=== PATIENT | female | born 1985 | race African-American/Black ===

== ENCOUNTER 2016-08-20 21:37 | Emergency (ER) | payer MEDICAID ==
[~2016-08-20] VITALS: Ht 175.3 cm; Wt 136.1 kg
[2016-08-20 22:09] VITALS: BP 119/73
[2016-08-20] MEDS ORDERED: AUGMENTIN 875-1 EAC1 ORAL (22:09)
[2016-08-20] MEDS ORDERED: NEXAFED30 MG ORAL (22:09)
--- NOTE | 2016-08-20 22:09 | Emergency Room Report ---
History of Present Illness General Chief Complaint: Pain Source: Patient Present Illness HPI Is a 31-year-old female with no past medical history. She presents with sinus pressure and pain for the last 2 weeks. Does have runny nose congestion. Sneezing more. Has yellow mucous. No fever or chills. 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 No other complaint. Mcak-eiu-heiclem medication not helping. Allergies: Coded Allergies: No Known Allergies (Unverified , 08/20/16) Patient History Past Medical History: none, see triage record, old chart reviewed Past Surgical History: none Pertinent Family History: none Social History: Denies: smoking Last Menstrual Period: 08/13/16 Now: No Immunizations: other Reviewed Nursing Documentation: PMH: Agreed, PSxH: Agreed Nursing Documentation-PM Past Medical History: No Stated History Review of Systems Eye: Denies: blurred vision, eye pain ENT: Reports: nose congestion, nose pain, Denies: ear pain, throat swelling Respiratory: Denies: cough, shortness of breath Cardiovascular: Denies: chest pain, palpitations Gastrointestinal: Denies: abdominal pain, diarrhea, nausea, vomiting Musculoskeletal: Denies: back pain, joint pain Skin: Denies: rash Neurological: Denies: headache, numbness Endocrine: Denies: increased thirst, increased urine Hematologic/Lymphatic: Denies: easy bruising All Other Systems: negative except mentioned in HPI Physical Exam Vital Signs Date Time Temp Pulse Resp B/P Pulse Ox O2 Delivery O2 Flow Rate FiO2 08/20/16 21:50 97.0 68 17 126/77 100 Room Air vitals normal Sp02 EP Interpretation: reviewed, normal General Appearance: well appearing, no apparent distress, alert Head: normocephalic, atraumatic Eyes: bilateral eye EOMI, bilateral eye PERRL ENT: hearing grossly normal, normal pharynx, other - sinus tenderness with palpation Neck: full range of motion, supple, no meningismus Respiratory: chest non-tender, lungs clear, normal breath sounds Cardiovascular #1: regular rate, rhythm, no murmur Gastrointestinal: normal bowel sounds, non tender, no mass, no organomegaly, no bruit, non-distended Musculoskeletal: back normal, gait/station normal, normal range of motion Psychiatric: mood/affect normal Skin: warm/dry Medical Decision Making Diagnostic Impression: Primary Impression: Sinusitis, acute maxillary Qualified Codes: J01.00 - Acute maxillary sinusitis, unspecified Additional Impression: Viral upper respiratory illness ER Course She present with a viral illness now with acute sinusitis. Because been ongoing for over 2 weeks, I will go ahead and put her on antibiotics. No evidence of sepsis, meningitis or fungal infection. She looks well. We'll discharge home. Last Vital Signs Date Time Temp Pulse Resp B/P Pulse Ox O2 Delivery O2 Flow Rate FiO2 08/20/16 21:50 97.0 68 17 126/77 100 Room Air Status: improved Disposition: HOME, SELF-CARE Condition: Stable Scripts Pseudoephedrine Hcl* (NEXAFED*) 30 Mg Tablet 30 MG ORAL Q6H Y for congestion, #30 TAB Prov: ANDREW ROY M.D. 08/20/16 Amoxicillin/Potassium Clav 875-125* (AUGMENTIN 875-125 TABLET*) 1 Each Tablet 1 TAB ORAL TWICE A DAY, #20 TAB Prov: ANDREW ROY M.D. 08/20/16 Additional Instructions: Followup with your in 7 days. Return for increasing pain, fever, chills, or any concern. ANDREW ROY M.D. Aug 20, 2016 22:09
[2016-08-20 22:14] VITALS: BP 119/73
== END 2016-08-20 23:00 | disposition home or self-care (01) ==
LOC: EMR 22:50
DX: J01.00 Acute maxillary sinusitis, unspecified (principal); J06.9 Acute upper respiratory infection, unspecified; B34.9 Viral infection, unspecified
CPT/HCPCS: 99284

== ENCOUNTER 2016-12-20 10:49 | Emergency (ER) | payer MEDICAID ==
[~2016-12-20] VITALS: Ht 175.3 cm; Wt 140.6 kg
[~2016-12-20 10:49] MED LIST: AUGMENTIN 875-1 EAC1 ORAL; NEXAFED30 MG ORAL
[2016-12-20 11:06] VITALS: BP 109/65
[2016-12-20] MEDS ORDERED: IBUPROFEN600 MG ORAL (11:45)
[2016-12-20] MEDS ORDERED: PSEUDOEPHEDRINE60 MG PO (11:45)
[2016-12-20] MEDS ORDERED: AMOXICILLIN500 M1 PO (11:45)
[2016-12-20 11:55] VITALS: BP 128/67
--- NOTE | 2016-12-20 11:55 | Emergency Room Report ---
History of Present Illness General Chief Complaint: Headache Source: Patient Present Illness HPI Patient reports nosebleed with mucus and congestion the last 3 days, nosebleed times one today stopped on its on. Sinus congestion, sinus headache and discomfort reported. She's been using jxcb-[id number]-[id number] medications. Nonsmoker. No history of sinus surgery or allergies. Not . Pain is rated moderate but not severe. There is no brain ears, visual complaints, pain in the teeth or dental problems reported. No otitis symptoms noted Allergies: Coded Allergies: No Known Allergies (Unverified , 08/20/16) Patient History Past Medical History: see triage record Social History: Denies: alcohol use, drug use, smoking Last Menstrual Period: 12/14/2016 and still bleeding Now: No : 0 Para: 0 Reviewed Nursing Documentation: PMH: Agreed Nursing Documentation-PMH Past Medical History: No Stated History Review of Systems ENT: Reports: nasal discharge, nose congestion, nose pain All Other Systems: negative except mentioned in HPI Physical Exam Vital Signs Date Time Temp Pulse Resp B/P Pulse Ox O2 Delivery O2 Flow Rate FiO2 12/20/16 10:55 98.2 69 18 109/65 98 Room Air Sp02 EP Interpretation: reviewed, normal General Appearance: no apparent distress, alert, GCS 15 Head: atraumatic Eyes: bilateral eye normal inspection ENT: normal voice, dry mucus membranes, nasal congestion, other - mild dried blood in the left nare, tenderness percussion in the left and right maxillary and frontal sinus, no redness or swelling Neck: normal inspection, full range of motion, supple, no bony tend Respiratory: normal inspection, lungs clear, normal breath sounds, no respiratory distress, no retraction, no wheezing Cardiovascular #1: regular rate, rhythm, no edema Gastrointestinal: normal inspection, normal bowel sounds, non tender, soft, no guarding, no hernia Genitourinary: no CVA tenderness Musculoskeletal: normal inspection, back normal, normal range of motion Neurologic: normal inspection, alert, responsive, speech normal Psychiatric: normal inspection, judgement/insight normal, mood/affect normal Skin: normal inspection, normal color, no rash Medical Decision Making Diagnostic Impression: Primary Impression: Headache Additional Impression: sinusitis ER Course Ration here with sinus symptoms duration of approximately 3 days. Noted blood on her tissue today with mucus. No allergies and no significant findings for acute bacterial sinusitis. Patient does have access issues with health care and we had a long discussion of awum-ahh-tsdozzm treatments and the patient will prefer to try those initially. I wrote her a prescription for amoxicillin in the case that her symptoms were to become more severe and we discussed with her symptoms could be to rm possible treatment for sinusitis infection bacterial. Last Vital Signs Date Time Temp Pulse Resp B/P Pulse Ox O2 Delivery O2 Flow Rate FiO2 12/20/16 11:06 98.2 69 18 109/65 98 Room Air Disposition: HOME, SELF-CARE Condition: Stable Scripts Pseudoephedrine Hcl* (SUDAFED*) 60 Mg Tablet 60 MG PO Q6H for For Pain for 7 Days, #21 TAB Prov: Javon Street MD 12/20/16 Ibuprofen* (MOTRIN*) 600 Mg Tablet 600 MG ORAL THREE TIMES A DAY, #30 TAB 0 Refills Prov: Javon Street MD 12/20/16 Amoxicillin (AMOXICILLIN) 500 Mg Tablet 500 MG PO TID for 7 Days, #21 TAB Prov: Javon Street MD 12/20/16 Referrals: [facility]ERR[facility] (PCP) Patient Instructions: Sinus Headache, Sinusitis, Adult, Sinus Headache, Easy-to -Read Javon Street MD Dec 20, 2016 11:55
[2016-12-20 12:00] VITALS: BP 128/74
== END 2016-12-20 12:00 | disposition home or self-care (01) ==
LOC: EMR 11:40
DX: R51 Headache (principal); J32.9 Chronic sinusitis, unspecified
CPT/HCPCS: 99284

== ENCOUNTER 2018-11-28 22:33 | Emergency (ER) | payer MEDICAID ==
[~2018-11-28] VITALS: Ht 172.7 cm; Wt 149.7 kg
[~2018-11-28 22:33] MED LIST changes: +AMOXICILLIN500 M1 PO; +IBUPROFEN600 MG ORAL; +PSEUDOEPHEDRINE60 MG PO
[2018-11-28 22:55] VITALS: BP 165/105
--- NOTE | 2018-11-28 23:00 | NUR ---
ED Nurse Note: Patient walked in to ER c/o left side upper and lower toothache. States that had wisdom teeth removal surgery 1 week ago. AAO x4, VSS at this time, skin is warm to touch.
--- NOTE | 2018-11-28 23:26 | Emergency Room Report ---
History of Present Illness General Chief Complaint: Toothache Source: Patient Present Illness HPI The patient had 2 wisdom teeth extracted last . She started having pain in her lower jaw radiating down her neck earlier today. She has noticed that there is a hole in the area where the tooth was pulled. She was not given antibiotics and was not told to use rinses. She feels some dizziness but denies any fevers or chills. She has no difficulty swallowing at this time. She rates the pain 10/10 initially but then tells the nurse taking care of her is 8/10. Is constant. Aching The patient has irregular periods. She had IUD removed. Her last menstruation was in September. Her last sexual encounter was before 2 weeks ago and she had a test 2 weeks ago that was negative. Does not feel at this time. No fevers, chills, chest pain, palpitations, nausea, vomiting, diarrhea, dysuria , abdominal pain, shortness of breath, depression, visual changes, rashes. Allergies: Coded Allergies: No Known Allergies (Unverified , 08/20/16) Patient History Past Medical History: see triage record Social History: Denies: smoking Social History Narrative From home Last Menstrual Period: 09/2018 Now: No : 0 Reviewed Nursing Documentation: PMH: Agreed; PSxH: Agreed Nursing Documentation-PMH Past Medical History: No Stated History Review of Systems All Other Systems: negative except mentioned in HPI Physical Exam Vital Signs Date Time Temp Pulse Resp B/P (MAP) Pulse Ox O2 Delivery O2 Flow Rate FiO2 11/28/18 22:51 97.9 60 18 165/105 (125) 100 Room Air Sp02 EP Interpretation: reviewed, normal General Appearance: well appearing, no apparent distress Head: normocephalic, atraumatic ENT: hearing grossly normal, normal voice, other - Dry socket left wisdom tooth area no swelling Neck: full range of motion, supple Respiratory: lungs clear, no respiratory distress, speaking full sentences Cardiovascular #1: regular rate, rhythm Gastrointestinal: normal inspection Musculoskeletal: digits/nails normal, gait/station normal, normal range of motion, no calf tenderness Neurologic: alert, oriented x3, normal gait, grossly normal Psychiatric: mood/affect normal Skin: no rash Lymphatic: no adenopathy Medical Decision Making Diagnostic Impression: Primary Impression: Toothache Additional Impressions: Open socket Irregular menses ER Course Patient presents with an open socket and tooth pain. Differential includes dental abscess, open socket, post extraction pain amongst others. Antibiotics and analgesics are indicated. Discussed findings and the need for follow-up with her doctor with the patient. Also discussed treatment plan. Patient stable for outpatient observation and treatment. Last Vital Signs Date Time Temp Pulse Resp B/P (MAP) Pulse Ox O2 Delivery O2 Flow Rate FiO2 11/29/18 00:03 97.9 11/28/18 23:39 18 165/105 100 Room Air 11/28/18 22:51 60 Status: improved Disposition: HOME, SELF-CARE Condition: Improved Scripts Amoxicillin* (AMOXIL*) 500 Mg Capsule 500 MG ORAL THREE TIMES A DAY, #21 CAP Prov: Giacomo Chaudhry MD 11/28/18 Ibuprofen* (MOTRIN*) 600 Mg Tablet 600 MG ORAL Q6H PRN for For Pain, #20 TAB 0 Refills Prov: Giacomo Chaudhry MD 11/28/18 Giacomo Chaudhry MD Nov 28, 2018 23:26
[2018-11-28] MEDS ORDERED: IBUPROFEN600 MG ORAL (23:27)
[2018-11-28] MEDS ORDERED: AMOXICILLIN500 MG ORAL (23:27)
[2018-11-28 23:39] VITALS: BP 165/105
--- NOTE | 2018-11-28 23:40 | NUR ---
ED Nurse Note: Pt cleared by health care Provider for discharge. DC instructions/prescription was given and explained to pt and verbalized understanding of teachings. All medical deviecs such as ID band removed. Pt is AAO x4, ambulatory and left with all personal belongings.
== END 2018-11-28 23:45 | disposition home or self-care (01) ==
LOC: EMR 23:40
DX: K08.89 Other specified disorders of teeth and supporting structures (principal); N92.6 Irregular menstruation, unspecified; M27.3 Alveolitis of jaws
CPT/HCPCS: 99282

== ENCOUNTER 2019-01-25 20:40 | Emergency (ER) | payer MEDICAID ==
[~2019-01-25] VITALS: Ht 172.7 cm; Wt 149.2 kg
[~2019-01-25 20:40] MED LIST changes: +AMOXICILLIN500 MG ORAL
[2019-01-25] MEDS ORDERED: NKM (20:48)
[2019-01-25 21:00] VITALS: BP 152/83
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
[2019-01-25] MEDS ORDERED: Ketorolac 30mg Inj IM ONE (21:15)
[2019-01-25 22:03] VITALS: BP 152/83
== END 2019-01-25 22:15 | disposition home or self-care (01) ==
LOC: EMR 21:20
DX: S80.02XA Contusion of left knee, initial encounter (principal); S20.212A Contusion of left front wall of thorax, initial encounter; V43.52XA Car driver injured in collision with other type car in traffic accident, initial encounter; Y92.414 Local residential or business street as the place of occurrence of the external cause
CPT/HCPCS: 71046; 73562; 96372; 99283; J1885

== ENCOUNTER 2019-07-21 15:35 | Emergency (ER) | payer MEDICAID ==
[~2019-07-21] VITALS: Ht 172.7 cm; Wt 149.7 kg
[~2019-07-21 15:35] MED LIST changes: +NKM
[2019-07-21 15:45] VITALS: BP 128/72
[2019-07-21] MEDS ORDERED: AMLODIPINE BESY10 MG ORAL (15:45)
--- NOTE | 2019-07-21 15:57 | NUR ---
ED Nurse Note: Pt ambulated to ED d/t dizziness with "mild chest pain" with feeling of tightness and 2/10 pain scale started today at 1400. Pt is AOx4, calm and cooperative. Per triage, pt has a hx of HTN. Placed on bed and gown, Dr. Chaudhry at bedside.
[2019-07-21] MEDS ORDERED: LORazepam Inj 2mg/ml 1ml IV ONE (16:00)
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
[2019-07-21 16:15] VITALS: BP_SYST 111; BP_SYST 114; BP_SYST 116; BP_DIAS 54; BP_DIAS 63; BP_DIAS 82
[2019-07-21 16:32] LABS: APPEARANCE,URINE SLIGHTLY CLOUDY; BILIRUBIN, URINE NEGATIVE (NEGATIVE); COLOR,URINE AMBER; GLUCOSE, URINE (UA) NEGATIVE (NEGATIVE); KETONES,URINE 1+ (NEGATIVE); LEUKOCYTE ESTERASE ,URINE 1+ (NEGATIVE); NITRITE,URINE NEGATIVE (NEGATIVE); PH,URINE 5 (4.5-8.0); PROTEIN,URINE NEGATIVE (NEGATIVE); UROBILINOGEN,URINE 1 MG/DL (0.0-1.0)
[2019-07-21 16:34] LABS: BASOPHILS % (AUTO) 1.3 % (0.0-2.0); EOSINOPHILS % (AUTO) 0.5 % (0.0-3.0); HEMATOCRIT 37.7 % (37.0-47.0); HEMOGLOBIN 12.6 G/DL (12.0-16.0); LYMPHOCYTES % (AUTO) 30.9 % (20.0-45.0); MEAN CORPUSCULAR VOLUME 86 FL (80-99); MONOCYTES % (AUTO) 6.4 % (1.0-10.0); PLATELET COUNT 324 K/UL (150-450); RED BLOOD COUNT 4.37 M/UL (4.20-5.40); RED CELL DISTRIBUTION WIDTH 13.4 % (11.6-14.8); WHITE BLOOD COUNT 5.8 K/UL (4.8-10.8)
[2019-07-21 16:52] LABS: ANION GAP 11 mmol/L (5-15); BLOOD UREA NITROGEN 15 mg/dL (7-18); CALCIUM 9.3 MG/DL (8.5-10.1); CARBON DIOXIDE 27 MMOL/L (21-32); CHLORIDE 105 MMOL/L (98-107); CREATININE 0.9 MG/DL (0.55-1.30); POTASSIUM 3.4 MMOL/L (3.5-5.1); SODIUM 143 MMOL/L (136-145)
[2019-07-21 17:04] LABS: ALANINE AMINOTRANSFERASE 20 U/L (12-78); ALBUMIN 3.3 G/DL (3.4-5.0); ALBUMIN/GLOBULIN RATIO 0.6 (1.0-2.7); ALKALINE PHOSPHATASE 94 U/L (46-116); ASPARTATE AMINO TRANSFERASE 8 U/L (15-37); BILIRUBIN,TOTAL 0.2 MG/DL (0.2-1.0); CREATINE KINASE 74 U/L (26-308)
[2019-07-21 17:54] VITALS: BP 124/64
--- NOTE | 2019-07-21 17:55 | NUR ---
ED Nurse Note: Pt still on stable condition; VSS, on RA. Family member at bedside.
[2019-07-21 19:30] VITALS: BP 118/62
--- NOTE | 2019-07-21 19:30 | NUR ---
ER DISCHARGE NOTE: Patient is cleared to be discharged per ERMD, pt is aox4, on room air, with stable vital signs. pt was given dc instructions, pt was able to verbalize understanding, pt id band and iv site removed without complications. pt is able to ambulate with steady gait. pt took all belongings.
--- NOTE | 2019-07-22 10:38 | Diagnostic Imaging Report ---
Indication: Chest pain Technique: One view of the chest Comparison: 01/25/2019 Findings: Lungs and pleural spaces are clear. Heart size is normal. Impression: No acute process
== END 2019-07-21 19:30 | disposition home or self-care (01) ==
LOC: EMR 17:15
DX: R42 Dizziness and giddiness (principal); R00.2 Palpitations; T50.905A Adverse effect of unspecified drugs, medicaments and biological substances, initial encounter; I10 Essential (primary) hypertension; X58.XXXA Exposure to other specified factors, initial encounter; Y92.9 Unspecified place or not applicable
CPT/HCPCS: 36415; 71045; 80053; 80307; 81003; 81025; 82550; 84443; 84484; 85025; 93005; 96361; 96374; G0480; G0481; J7030; Z7502; 99284

== ENCOUNTER 2019-10-25 16:17 | Emergency (ER) | payer MEDICAID ==
[~2019-10-25] VITALS: Ht 175.3 cm; Wt 148.8 kg
[~2019-10-25 16:17] MED LIST changes: +AMLODIPINE BESY10 MG ORAL
[2019-10-25] MEDS ORDERED: Mylanta II UD 30ml ONE (17:00)
[2019-10-25] MEDS ORDERED: Lidocaine 2% Visc 15ml soln ORAL ONE (17:00)
[2019-10-25] MEDS ORDERED: Mylanta II UD 30ml ORAL ONE (17:15)
[2019-10-25 17:18] LABS: APPEARANCE,URINE CLEAR; BILIRUBIN, URINE NEGATIVE (NEGATIVE); COLOR,URINE PALE YELLOW; GLUCOSE, URINE (UA) NEGATIVE (NEGATIVE); KETONES,URINE NEGATIVE (NEGATIVE); LEUKOCYTE ESTERASE ,URINE 2+ (NEGATIVE); NITRITE,URINE NEGATIVE (NEGATIVE); PH,URINE 5 (4.5-8.0); PROTEIN,URINE NEGATIVE (NEGATIVE); UROBILINOGEN,URINE NORMAL MG/DL (0.0-1.0)
--- NOTE | 2019-10-25 17:20 | NUR ---
ED Nurse Note:pt. c/o abdominal pain yesterday, urine sent to labs, given po meds
[2019-10-25 17:27] VITALS: BP 124/71
--- NOTE | 2019-10-25 17:38 | Emergency Room Report ---
History of Present Illness General Chief Complaint: Abdominal Pain Source: Patient Present Illness HPI 34-year-old female presents to the emergency department complaining of episode of 4 out of 10 severity lower midline abdominal pain with bloating and increased flatulence since yesterday. Patient denies pain at this time. She reports one episode of vomiting and states she saw specks of blood in the vomitus. Patient denies blood in the stool or black tarry stools. She denies but states that her menstrual cycles are regular. She denies fevers or chills. She denies constipation or diarrhea. She denies abdominal tenderness. She denies low back pain. Patient denies hematuria or dysuria. Patient does report increase in urinary frequency. She denies suspicion of STI. She denies vaginal d/c. No other aggravating or relieving factors at this time. She denies being on blood thinning medications. Denies habitual NSAID use. She denies hx of GI bleeds. Denies hx of ETOH dependence. Allergies: Coded Allergies: No Known Allergies (Unverified , 08/20/16) COVID-19 Screening Contact w/high risk pt: No Recent Travel to affected area: No Experienced COVID-19 symptoms?: No COVID-19 Testing performed SPRAYING MACHINE OPERATOR: No Patient History Past Medical History: see triage record, psych hx Past Surgical History: none Pertinent Family History: none Last Menstrual Period: 10/2018 Now: No - irregular Reviewed Nursing Documentation: PMH: Agreed; PSxH: Agreed Nursing Documentation-PMH Past Medical History: No History, Except For Hx Hypertension: Yes Review of Systems All Other Systems: negative except mentioned in HPI Physical Exam Vital Signs Date Time Temp Pulse Resp B/P (MAP) Pulse Ox O2 Delivery O2 Flow Rate FiO2 10/25/19 16:25 97.9 60 20 124/71 (88) 97 Room Air Sp02 EP Interpretation: reviewed, normal General Appearance: no apparent distress, alert, GCS 15, non-toxic Head: normocephalic, atraumatic Eyes: bilateral eye normal inspection, bilateral eye PERRL ENT: hearing grossly normal, normal voice Neck: full range of motion Respiratory: lungs clear, normal breath sounds, speaking full sentences Cardiovascular #1: regular rate, rhythm Gastrointestinal: normal bowel sounds, non tender, soft, no peritonitis, non- distended, no guarding Rectal: deferred Genitourinary: normal inspection, no CVA tenderness Musculoskeletal: back normal, normal range of motion, gait/station normal, non- tender Neurologic: alert, motor strength/tone normal, oriented x3, sensory intact, responsive, speech normal Psychiatric: judgement/insight normal Skin: no rash, normal color Medical Decision Making PA Attestation Dr. Varma Is my supervising Physician whom patient management has been discussed with. Diagnostic Impression: Primary Impression: UTI (urinary tract infection) Qualified Codes: N30.01 - Acute cystitis with hematuria Additional Impression: Nausea & vomiting Qualified Codes: R11.2 - Nausea with vomiting, unspecified ER Course 34-year-old female presents to the emergency department complaining of episode of 4 out of 10 severity lower midline abdominal pain with bloating and increased flatulence since yesterday. Patient denies pain at this time. She reports one episode of vomiting and states she saw specks of blood in the vomitus. Patient denies blood in the stool or black tarry stools. She denies but states that her menstrual cycles are regular. She denies fevers or chills. She denies constipation or diarrhea. She denies abdominal tenderness. She denies low back pain. Patient denies hematuria or dysuria. Patient does report increase in urinary frequency. She denies suspicion of STI. She denies vaginal d/c. No other aggravating or relieving factors at this time. She denies being on blood thinning medications. Denies habitual NSAID use. She denies hx of GI bleeds. Denies hx of ETOH dependence. Ddx considered but are not limited to UTi , Pyelo, STI, Stone, Cystitis, , acute appendicitis, PID, Gastritis, upper GI bleed just to name a few. Vital signs: are WNL, pt. is afebrile H&PE are most consistent with UTI ORDERS: - UA labs are attached ---presence of bacteria with elevation of inflammatory markers. ED INTERVENTIONS: -GI Cocktail -- PT. able to tolerate GI cocktail and oral fluids. Pt. reports not currently having any pain. -I do not identify an emergent condition at this time. With current presentation , pt. is stable for close outpatient follow up and conservative treatment. D/ w pt. to return promptly to ED with worsening or new symptoms.- Pt. verbalizes' understanding and agreement with proposed treatment plan. DISCHARGE: At this time pt. is stable for d/c to home. Will provide printed patient care instructions, and any necessary prescriptions. Care plan and follow up instructions have been discussed with the patient prior to discharge. Labs Test 10/25/19 16:40 Urine Color Pale yellow Urine Appearance Clear Urine pH 5 (4.5-8.0) Urine Specific [place] 1.015 (1.005-1.035) Urine Protein Negative (NEGATIVE) Urine Glucose (UA) Negative (NEGATIVE) Urine Ketones Negative (NEGATIVE) Urine Blood Negative (NEGATIVE) Urine Nitrite Negative (NEGATIVE) Urine Bilirubin Negative (NEGATIVE) Urine Urobilinogen Normal MG/DL (0.0-1.0) Urine Leukocyte Esterase 2+ (NEGATIVE) Urine RBC 0-2 /HPF (0 - 2) Urine WBC 5-10 /HPF (0 - 2) Urine Squamous Epithelial Cells Few /LPF (NONE/OCC) Urine Bacteria Few /HPF (NONE) Urine HCG, Qualitative Negative (NEGATIVE) Urine Opiates Screen Negative (NEGATIVE) Urine Barbiturates Screen Negative (NEGATIVE) Phencyclidine (PCP) Screen Negative (NEGATIVE) Urine Amphetamines Screen Negative (NEGATIVE) Urine Benzodiazepines Screen Negative (NEGATIVE) Urine Cocaine Screen Negative (NEGATIVE) Urine Marijuana (THC) Screen Negative (NEGATIVE) Last Vital Signs Date Time Temp Pulse Resp B/P (MAP) Pulse Ox O2 Delivery O2 Flow Rate FiO2 10/25/19 16:25 97.9 60 20 124/71 (88) 97 Room Air Disposition: HOME, SELF-CARE Condition: Stable Scripts Simethicone (SIMETHICONE) 180 Mg Capsule 180 MG PO BID, #20 CAP Prov: Henny Snyder 10/25/19 Ondansetron Odt* (ZOFRAN ODT*) 4 Mg Tab.rapdis 4 MG BC EVERY 6 HOURS PRN for Nausea & Vomiting, #10 TAB 0 Refills Prov: Henny Snyder 10/25/19 Nitrofurantoin Monohyd/M-Cryst* (MACROBID 100 MG*) 100 Mg Capsule 100 MG ORAL EVERY 12 HOURS for 7 Days, #14 CAP Prov: Henny Snyder 10/25/19 [facility]: [facility] Patient Instructions: Urinary Tract Infection, [id number] Additional Instructions: Take medications as directed. Follow up with a Primary Care Provider in 3-5 days, even if your symptoms have resolved. --Please review list of primary care clinics, if you do not already have a primary care provider Return sooner to ED if new symptoms occur, or current symptoms become worse. - Please note that this Emergency Department Report was dictated using [email or web address] technology software, occasionally this can lead to erroneous entry secondary to interpretation by the dictation equipment. Henny Snyder October 25, 2019 17:38
[2019-10-25] MEDS ORDERED: NITROFURANTOIN100 M2 ORAL (17:43)
[2019-10-25] MEDS ORDERED: SIMETHICONE180 MG PO (17:43)
[2019-10-25] MEDS ORDERED: ONDANSETRON ODT4 MG BC (17:43)
[2019-10-25 18:00] VITALS: BP 124/71
== END 2019-10-25 18:00 | disposition home or self-care (01) ==
LOC: EMR 17:18
DX: N30.01 Acute cystitis with hematuria (principal); R11.2 Nausea with vomiting, unspecified; I10 Essential (primary) hypertension
CPT/HCPCS: 80307; 81001; 81025; Z7502; 99284

== ENCOUNTER 2020-02-29 20:52 | Emergency (ER) | payer MEDICAID ==
[~2020-02-29] VITALS: Ht 175.3 cm; Wt 145.1 kg
[~2020-02-29 20:52] MED LIST changes: +NITROFURANTOIN100 M2 ORAL; +ONDANSETRON ODT4 MG BC; +SIMETHICONE180 MG PO
--- NOTE | 2020-02-29 21:25 | Emergency Room Report ---
History of Present Illness General Chief Complaint: Chest Pain Source: Patient (Carlo Brambila MD) Present Illness HPI Patient is a 35-year-old female presents for increased left-sided chest discomfort. Onset approximately 9 hours prior to arrival. Patient had prior history of coronavirus infection approximately 3 months ago. Patient denies any increased pain with exertion. Had been onset patient has pain constant since onset. Prior history of PTSD. Pain began after moving her shoulders. Patient had increased pain after moving her shoulders. Had prior history of similar symptoms in the past. Denies any shortness of breath. (Carlo Brambila MD) Allergies: Coded Allergies: No Known Allergies (Unverified , 08/20/16) COVID-19 Screening Contact w/high risk pt: No Recent Travel to affected area: No Experienced COVID-19 symptoms?: No COVID-19 Testing performed MERCHANDISER RETAIL REPRESENTATIVE: No (Carlo Brambila MD) Patient History Past Medical History: see triage record Now: No : 0 Para: 0 Reviewed Nursing Documentation: PMH: Agreed; PSxH: Agreed (Carlo Brambila MD) Nursing Documentation-PMH Hx Hypertension: Yes (Carlo Brambila MD) Review of Systems All Other Systems: negative except mentioned in HPI (Carlo Brambila MD) Physical Exam Vital Signs Date Time Temp Pulse Resp B/P (MAP) Pulse Ox O2 Delivery O2 Flow Rate FiO2 02/29/20 20:58 98.2 73 20 134/75 (94) 99 Room Air Sp02 EP Interpretation: reviewed, normal General Appearance: normal inspection, well appearing, no apparent distress, alert, GCS 15 Head: atraumatic ENT: normal ENT inspection, hearing grossly normal, normal voice Neck: normal inspection, full range of motion, supple, no bony tend Respiratory: normal inspection, lungs clear, normal breath sounds, no respiratory distress, no retraction, no wheezing Cardiovascular #1: regular rate, rhythm, no edema Gastrointestinal: normal inspection, normal bowel sounds, non tender, soft, no guarding, no hernia Genitourinary: no CVA tenderness Musculoskeletal: normal inspection, back normal, normal range of motion Neurologic: alert, motor strength/tone normal, can stacker III-XII nml as tested, oriented x3, responsive, speech normal, normal inspection Psychiatric: normal inspection, judgement/insight normal, mood/affect normal (Carlo Brambila MD) Medical Decision Making Diagnostic Impression: Primary Impression: Chest pain Additional Impressions: Chest wall pain Urinary tract infection ER Course Patient presented for chest pain. Differential diagnosis included but was not limited to acute coronary syndrome, pulmonary embolism, pneumonia, aortic dissection, shingles, pneumothorax, aortic dissection, esophageal rupture, pericarditis. EKG showed normal sinus rhythm without acute ST or T wave changes. CXR showed no evident infiltrate Patient appears to have chest pain which appears to be muscular in nature. Laboratory testing showed some slightly elevated d-dimer. CT angios was ordered. Patient was endorsed to Dr. Sharma Patient will be discharged home if CT is negative. Labs Test 02/29/20 21:25 02/29/20 21:30 Urine Color Yellow Urine Appearance Cloudy Urine pH 5 (4.5-8.0) Urine Specific [place] 1.015 (1.005-1.035) Urine Protein Negative (NEGATIVE) Urine Glucose (UA) Negative (NEGATIVE) Urine Ketones Negative (NEGATIVE) Urine Blood Negative (NEGATIVE) Urine Nitrite Negative (NEGATIVE) Urine Bilirubin Negative (NEGATIVE) Urine Urobilinogen Normal MG/DL (0.0-1.0) Urine Leukocyte Esterase 2+ (NEGATIVE) Urine RBC 0-2 /HPF (0 - 2) Urine WBC 15-20 /HPF (0 - 2) Urine Squamous Epithelial Cells Many /LPF (NONE/OCC) Urine Bacteria Many /HPF (NONE) Urine HCG, Qualitative Negative (NEGATIVE) White Blood Count 7.0 K/UL (4.8-10.8) Red Blood Count 3.79 M/UL (4.20-5.40) Hemoglobin 11.4 G/DL (12.0-16.0) Hematocrit 34.8 % (37.0-47.0) Mean Corpuscular Volume 92 FL (80-99) Mean Corpuscular Hemoglobin 30.2 PG (27.0-31.0) Mean Corpuscular Hemoglobin Concent 32.8 G/DL (32.0-36.0) Red Cell Distribution Width 14.6 % (11.6-14.8) Platelet Count 280 K/UL (150-450) Mean Platelet Volume 8.2 FL (6.5-10.1) Neutrophils (%) (Auto) 62.1 % (45.0-75.0) Lymphocytes (%) (Auto) 28.7 % (20.0-45.0) Monocytes (%) (Auto) 6.4 % (1.0-10.0) Eosinophils (%) (Auto) 0.8 % (0.0-3.0) Basophils (%) (Auto) 2.0 % (0.0-2.0) D-Dimer 0.54 mg/L FEU (0.00-0.49) Sodium Level 138 MMOL/L (136-145) Potassium Level 3.6 MMOL/L (3.5-5.1) Chloride Level 104 MMOL/L (98-107) Carbon Dioxide Level 28 MMOL/L (21-32) Anion Gap 6 mmol/L (5-15) Blood Urea Nitrogen 7 mg/dL (7-18) Creatinine 0.9 MG/DL (0.55-1.30) Estimat Glomerular Filtration Rate > 60 mL/min (>60) Glucose Level 86 MG/DL (74-106) Calcium Level 8.9 MG/DL (8.5-10.1) Total Bilirubin 0.3 MG/DL (0.2-1.0) Aspartate Amino Transf (AST/SGOT) 13 U/L (15-37) Alanine Aminotransferase (ALT/SGPT) 18 U/L (12-78) Alkaline Phosphatase 65 U/L (46-116) Troponin I 0.000 ng/mL (0.000-0.056) Pro-B-Type Natriuretic Peptide 202 pg/mL (0-125) Total Protein 7.6 G/DL (6.4-8.2) Albumin 3.4 G/DL (3.4-5.0) Globulin 4.2 g/dL Albumin/Globulin Ratio 0.8 (1.0-2.7) Lipase 55 U/L (73-393) (Carlo Brambila MD) ER Course Hospital Course 35-year-old F presents ED complaining of chest pain Patient initially seen and evaluated by Dr. Brambila. Please see his note for full history and physical Clinical course labs reviewed- all electrolytes normal, troponins negative, no leukocytosis, hemoglobin/hematocrit stable, d-dimer somewhat elevated EKG - NSR no acute ischemic changes interpreted by me CTA chest - no evidence of PE Discussed findings with patient. Safe for discharge with close outpatient follow-up. States she has a PMD I. I feel this is a highly complex case requiring extensive working including EKG/Rhythm strip, Xray/CT/US, Blood/urine lab work, repeat exams while in ED, and administration of strong opiates/narcotics for pain control, admission to hospital or close patient follow up. Diagnosis - chest pain, chest wall pain, UTI Stable and discharged to home. Instructed to followup with PMD. Return to ED if symptoms recur or worsen Laboratory Tests Test 02/29/20 21:25 02/29/20 21:30 Urine Color Yellow Urine Appearance Cloudy Urine pH 5 (4.5-8.0) Urine Specific [place] 1.015 (1.005-1.035) Urine Protein Negative (NEGATIVE) Urine Glucose (UA) Negative (NEGATIVE) Urine Ketones Negative (NEGATIVE) Urine Blood Negative (NEGATIVE) Urine Nitrite Negative (NEGATIVE) Urine Bilirubin Negative (NEGATIVE) Urine Urobilinogen Normal MG/DL (0.0-1.0) Urine Leukocyte Esterase 2+ (NEGATIVE) H Urine RBC 0-2 /HPF (0 - 2) Urine WBC 15-20 /HPF (0 - 2) H Urine Squamous Epithelial Cells Many /LPF (NONE/OCC) H Urine Bacteria Many /HPF (NONE) H Urine HCG, Qualitative Negative (NEGATIVE) White Blood Count 7.0 K/UL (4.8-10.8) Red Blood Count 3.79 M/UL (4.20-5.40) L Hemoglobin 11.4 G/DL (12.0-16.0) L Hematocrit 34.8 % (37.0-47.0) L Mean Corpuscular Volume 92 FL (80-99) Mean Corpuscular Hemoglobin 30.2 PG (27.0-31.0) Mean Corpuscular Hemoglobin Concent 32.8 G/DL (32.0-36.0) Red Cell Distribution Width 14.6 % (11.6-14.8) Platelet Count 280 K/UL (150-450) Mean Platelet Volume 8.2 FL (6.5-10.1) Neutrophils (%) (Auto) 62.1 % (45.0-75.0) Lymphocytes (%) (Auto) 28.7 % (20.0-45.0) Monocytes (%) (Auto) 6.4 % (1.0-10.0) Eosinophils (%) (Auto) 0.8 % (0.0-3.0) Basophils (%) (Auto) 2.0 % (0.0-2.0) D-Dimer 0.54 mg/L FEU (0.00-0.49) H Sodium Level 138 MMOL/L (136-145) Potassium Level 3.6 MMOL/L (3.5-5.1) Chloride Level 104 MMOL/L (98-107) Carbon Dioxide Level 28 MMOL/L (21-32) Anion Gap 6 mmol/L (5-15) Blood Urea Nitrogen 7 mg/dL (7-18) Creatinine 0.9 MG/DL (0.55-1.30) Estimat Glomerular Filtration Rate > 60 mL/min (>60) Glucose Level 86 MG/DL (74-106) Calcium Level 8.9 MG/DL (8.5-10.1) Total Bilirubin 0.3 MG/DL (0.2-1.0) Aspartate Amino Transf (AST/SGOT) 13 U/L (15-37) L Alanine Aminotransferase (ALT/SGPT) 18 U/L (12-78) Alkaline Phosphatase 65 U/L (46-116) Troponin I 0.000 ng/mL (0.000-0.056) Pro-B-Type Natriuretic Peptide 202 pg/mL (0-125) H Total Protein 7.6 G/DL (6.4-8.2) Albumin 3.4 G/DL (3.4-5.0) Globulin 4.2 g/dL Albumin/Globulin Ratio 0.8 (1.0-2.7) L Lipase 55 U/L (73-393) L (Phong Sharma MD) EKG Diagnostic Results Rate: normal Rhythm: NSR ST Segments: no acute changes ASA given to the pt in ED: No (Phong Sharma MD) Rhythm Strip Diag. Results EP Interpretation: yes Rhythm: NSR, no PVC's, no ectopy (Phong Sharma MD) CT/MRI/US Diagnostic Results CT/MRI/US Diagnostic Results : Imaging Test Ordered: CTA Chest Impression Procedure: CTA Chest w Contrast EXAM: CT Angiography Chest With Intravenous Contrast CLINICAL HISTORY: CP TECHNIQUE: Axial computed tomographic angiography images of the chest with intravenous contrast. CTDI is 122.80 mGy and DLP is 767.2 mGy-cm. One or more of the following dose reduction techniques were used: automated exposure control, adjustment of the mA and/or kV according to patient size, use of iterative reconstruction technique. MIP reconstructed images were created and reviewed. COMPARISON: Chest radiograph dated today. FINDINGS: Pulmonary arteries: Unremarkable. No pulmonary embolism. Aorta: No acute findings. No thoracic aortic aneurysm. Lungs: Unremarkable. No mass. No consolidation. Pleural space: Unremarkable. No significant effusion. No pneumothorax. Heart: Unremarkable. No cardiomegaly. No significant pericardial effusion. No evidence of RV dysfunction. Bones/joints: No acute fracture. No dislocation. Soft tissues: Unremarkable. Lymph nodes: Unremarkable. No enlarged lymph nodes. IMPRESSION: No pulmonary embolism. (Phong Sharma MD) Last Vital Signs Date Time Temp Pulse Resp B/P (MAP) Pulse Ox O2 Delivery O2 Flow Rate FiO2 02/29/20 20:58 98.2 73 20 134/75 (94) 99 Room Air Status: improved (Carlo Brambila MD) Status: improved (Phong Sharma MD) Disposition: HOME, SELF-CARE Condition: Stable Scripts Famotidine* (Pepcid 20mg tablet*) 20 Mg Tablet 20 MG ORAL DAILY for Gerd, #30 TAB 0 Refills Prov: Phong Sharma MD 03/01/20 Cephalexin* (KEFLEX*) 500 Mg Capsule 500 MG ORAL EVERY 6 HOURS, #20 CAP Prov: Carlo Brambila MD 02/29/20 Ibuprofen* (MOTRIN*) 600 Mg Tablet 600 MG ORAL Q8H PRN for FOR PAIN, #30 TAB 0 Refills Prov: Carlo Brambila MD 02/29/20 Referrals: NON PHYSICIAN (PCP) Carlo Brambila MD Feb 29, 2020 21:25 Phong Sharma MD Mar 01, 2020 03:31
--- NOTE | 2020-02-29 21:47 | Diagnostic Imaging Report ---
EXAM: XR Chest, 1 View CLINICAL HISTORY: CP TECHNIQUE: Frontal view of the chest. COMPARISON: Radiograph dated 07/21/2019. FINDINGS: Lungs: Unremarkable. No consolidation. Pleural space: Unremarkable. No pneumothorax. Heart: Unremarkable. No cardiomegaly. Mediastinum: Unremarkable. Bones/joints: Unremarkable. IMPRESSION: No acute cardiopulmonary disease.
[2020-02-29 22:00] VITALS: BP 129/71
[2020-02-29 22:05] LABS: EOSINOPHILS % (AUTO) 0.8 % (0.0-3.0); HEMATOCRIT 34.8 % (37.0-47.0); HEMOGLOBIN 11.4 G/DL (12.0-16.0); LYMPHOCYTES % (AUTO) 28.7 % (20.0-45.0); MEAN CORPUSCULAR VOLUME 92 FL (80-99); MONOCYTES % (AUTO) 6.4 % (1.0-10.0); NEUTROPHILS % (AUTO) 62.1 % (45.0-75.0); PLATELET COUNT 280 K/UL (150-450); RED BLOOD COUNT 3.79 M/UL (4.20-5.40); RED CELL DISTRIBUTION WIDTH 14.6 % (11.6-14.8)
[2020-02-29 22:06] LABS: ANION GAP 6 mmol/L (5-15); BLOOD UREA NITROGEN 7 mg/dL (7-18); CALCIUM 8.9 MG/DL (8.5-10.1); CARBON DIOXIDE 28 MMOL/L (21-32); CHLORIDE 104 MMOL/L (98-107); CREATININE 0.9 MG/DL (0.55-1.30); POTASSIUM 3.6 MMOL/L (3.5-5.1); SODIUM 138 MMOL/L (136-145)
[2020-02-29 22:17] LABS: ALANINE AMINOTRANSFERASE 18 U/L (12-78); ALBUMIN 3.4 G/DL (3.4-5.0); ALBUMIN/GLOBULIN RATIO 0.8 (1.0-2.7); ALKALINE PHOSPHATASE 65 U/L (46-116); ASPARTATE AMINO TRANSFERASE 13 U/L (15-37); BILIRUBIN,TOTAL 0.3 MG/DL (0.2-1.0)
[2020-02-29 22:22] LABS: APPEARANCE,URINE CLOUDY; BILIRUBIN, URINE NEGATIVE (NEGATIVE); GLUCOSE, URINE (UA) NEGATIVE (NEGATIVE); KETONES,URINE NEGATIVE (NEGATIVE); LEUKOCYTE ESTERASE ,URINE 2+ (NEGATIVE); NITRITE,URINE NEGATIVE (NEGATIVE); PH,URINE 5 (4.5-8.0); PROTEIN,URINE NEGATIVE (NEGATIVE); UROBILINOGEN,URINE NORMAL MG/DL (0.0-1.0)
[2020-02-29 22:26] LABS: COLOR,URINE YELLOW
[2020-02-29] MEDS ORDERED: Omnipaque 350 100ml vial INJ PRN (22:30)
[2020-02-29] MEDS ORDERED: CEPHALEXIN500 MG ORAL (22:49)
[2020-02-29] MEDS ORDERED: IBUPROFEN600 M1 ORAL (22:49)
[2020-02-29 23:20] VITALS: BP 121/69
[2020-03-01 00:30] VITALS: BP 119/64
--- NOTE | 2020-03-01 00:34 | Diagnostic Imaging Report ---
EXAM: CT Angiography Chest With Intravenous Contrast CLINICAL HISTORY: CP TECHNIQUE: Axial computed tomographic angiography images of the chest with intravenous contrast. CTDI is 122.80 mGy and DLP is 767.2 mGy-cm. One or more of the following dose reduction techniques were used: automated exposure control, adjustment of the mA and/or kV according to patient size, use of iterative reconstruction technique. MIP reconstructed images were created and reviewed. COMPARISON: Chest radiograph dated today. FINDINGS: Pulmonary arteries: Unremarkable. No pulmonary embolism. Aorta: No acute findings. No thoracic aortic aneurysm. Lungs: Unremarkable. No mass. No consolidation. Pleural space: Unremarkable. No significant effusion. No pneumothorax. Heart: Unremarkable. No cardiomegaly. No significant pericardial effusion. No evidence of RV dysfunction. Bones/joints: No acute fracture. No dislocation. Soft tissues: Unremarkable. Lymph nodes: Unremarkable. No enlarged lymph nodes. IMPRESSION: No pulmonary embolism.
[2020-03-01] MEDS ORDERED: FAMOTIDINE20 MG ORAL (00:47)
[2020-03-01 00:50] VITALS: BP 119/64
--- NOTE | 2020-03-03 17:07 | Cardiology Report ---
APPROVED REPORT EKG Measurement Heart [id number] <Conclusion> Normal sinus rhythm Normal ECG
== END 2020-03-01 00:50 | disposition home or self-care (01) ==
LOC: EMR 21:05
DX: R07.9 Chest pain, unspecified (principal); N39.0 Urinary tract infection, site not specified; I10 Essential (primary) hypertension; Z86.19 Personal history of other infectious and parasitic diseases
CPT/HCPCS: 36415; 71045; 71275; 80053; 81003; 81025; 83690; 83880; 84484; 85025; 85379; 87086; 93005; Q9967; Z7502; 99284

== ENCOUNTER 2020-03-09 21:18 | Emergency (ER) | payer MEDICAID ==
[~2020-03-09] VITALS: Ht 175.3 cm; Wt 167.8 kg
[~2020-03-09 21:18] MED LIST changes: +CEPHALEXIN500 MG ORAL; +FAMOTIDINE20 MG ORAL; +IBUPROFEN600 M1 ORAL
[2020-03-09 21:25] VITALS: BP 110/70
[2020-03-09 21:30] VITALS: BP 110/73
--- NOTE | 2020-03-09 21:55 | NUR ---
ED Nurse Note: Patient walked into ED c/o upper abdominal pain and dizziness onset for about a couple hours now. patient rates her pain a 5/10 pain. states that pain initially came after finishing her antibiotics especially keflex. patient does report discomfort and spotting. patient is alert and oriented x4, ambulatory with as teady gait. VSS will continue to monitor
[2020-03-09 22:10] VITALS: BP 115/70
--- NOTE | 2020-03-09 22:10 | NUR ---
ER DISCHARGE NOTE: Patient is cleared to be discharged per ERMD, pt is aox4, on room air, with stable vital signs. pt was given dc and prescription instructions, pt was able to verbalize understanding, pt id band removed without complications. pt is able to ambulate with steady gait. pt took all belongings.
[2020-03-09] MEDS ORDERED: MECLIZINE HCL25 MG ORAL (22:11)
--- NOTE | 2020-03-09 22:12 | Emergency Room Report ---
History of Present Illness General Chief Complaint: Female Urogenital Problems Source: Patient, Medical Record Present Illness HPI This is a 35-year-old female with a history of anxiety. She presents with complaint of dizziness. She describes symptoms of room spinning when she lays down. No fever chills but no nausea no vomiting. She also has some burning station in her chest area. Also some epigastric pain after she took antibiotics for UTI. No fever chills but no nausea no vomiting pain no dysuria or hematuria. Nothing made it better. Denies any other complaint. No focal deficit. Allergies: Coded Allergies: No Known Allergies (Unverified , 08/20/16) COVID-19 Screening Contact w/high risk pt: No Recent Travel to affected area: No Experienced COVID-19 symptoms?: No COVID-19 Testing performed FLOW WORKER: No Patient History Past Medical History: see triage record, old chart reviewed, psych hx Past Surgical History: none Pertinent Family History: none Social History: Denies: smoking Last Menstrual Period: 2018 Now: No Immunizations: other Reviewed Nursing Documentation: PMH: Agreed; PSxH: Agreed Nursing Documentation-PMH Hx Hypertension: Yes Review of Systems Eye: Denies: eye pain, blurred vision ENT: Denies: ear pain, nose congestion, throat swelling Respiratory: Denies: cough, shortness of breath Cardiovascular: Denies: chest pain, palpitations Gastrointestinal: Denies: abdominal pain, diarrhea, nausea, vomiting Musculoskeletal: Denies: back pain, joint pain Skin: Denies: rash Neurological: Reports: dizziness; Denies: headache, numbness Endocrine: Denies: increased thirst, increased urine Hematologic/Lymphatic: Denies: easy bruising All Other Systems: negative except mentioned in HPI Physical Exam Vital Signs Date Time Temp Pulse Resp B/P (MAP) Pulse Ox O2 Delivery O2 Flow Rate FiO2 03/09/20 21:23 98.4 70 16 105/66 (79) 97 Room Air Vitals normal Sp02 EP Interpretation: reviewed, normal General Appearance: well appearing, no apparent distress, alert Head: normocephalic, atraumatic Eyes: bilateral eye PERRL, bilateral eye EOMI ENT: hearing grossly normal, normal pharynx Neck: full range of motion, supple, no meningismus Respiratory: chest non-tender, lungs clear, normal breath sounds Cardiovascular #1: regular rate, rhythm, no murmur Gastrointestinal: normal bowel sounds, non tender, no mass, no organomegaly, no bruit, non-distended Musculoskeletal: back normal, normal range of motion, gait/station normal Psychiatric: mood/affect normal Medical Decision Making Diagnostic Impression: Primary Impression: Vertigo ER Course Patient describes symptoms consistent with vertigo. No evidence of central vertigo. No focal deficit. No evidence of meningitis, bleed or neoplastic process. Probably worsened by her anxiety. Will discharge home. Last Vital Signs Date Time Temp Pulse Resp B/P (MAP) Pulse Ox O2 Delivery O2 Flow Rate FiO2 03/09/20 21:30 98.4 73 16 110/73 97 Room Air Status: unchanged Disposition: HOME, SELF-CARE Condition: Stable Scripts Meclizine Hcl* (MECLIZINE*) 25 Mg Tablet 25 MG ORAL THREE TIMES A DAY, #30 TAB Prov: Devon Claudio MD 03/09/20 Referrals: [facility],REFERR[facility] (PCP) Additional Instructions: Follow-up with in 7 days. Return if symptoms worsen. Devon Claudio MD Mar 09, 2020 22:12
== END 2020-03-09 22:10 | disposition home or self-care (01) ==
LOC: EMR 22:08
DX: R42 Dizziness and giddiness (principal); I10 Essential (primary) hypertension; F41.9 Anxiety disorder, unspecified; R10.13 Epigastric pain
CPT/HCPCS: 99282

== ENCOUNTER 2020-03-20 19:27 | Emergency (ER) | payer MEDICAID ==
[~2020-03-20] VITALS: Ht 175.3 cm; Wt 149.7 kg
[~2020-03-20 19:27] MED LIST changes: +MECLIZINE HCL25 MG ORAL
[2020-03-20 19:38] VITALS: BP 163/96
--- NOTE | 2020-03-20 19:38 | NUR ---
ED Nurse Note: Pt walked in to ED from home c/o left eye discharge due to getting hair oils in eye earlier today resulting in excess tearing. pt reports discomfort and pain 08/05. AAOX4, verbally responsive. No SOB.
[2020-03-20] MEDS ORDERED: OFLOXACIN5 ML OT (19:48)
[2020-03-20 19:55] VITALS: BP 163/96
--- NOTE | 2020-03-20 19:55 | NUR ---
ED Nurse Note: Pt cleared by ERMD for discharge. DC instructions/prescription was given and explained to pt and verbalized understanding of teachings. All medical deviecs such as ID band removed. Pt is AAO x4, ambulatory and left with all personal belongings.
--- NOTE | 2020-03-24 22:22 | Emergency Room Report ---
History of Present Illness General Chief Complaint: Skin Rash/Abscess Source: Patient Present Illness HPI Patient 35-year-old female presents for increased eye redness. Reports of increased eye discharge. Denies any visual changes. Had reportedly had a onset of symptoms after recent prolonged contact lens wearing. Denies any other complaints. Denies any fever. 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 Patient History Past Medical History: see triage record Last Menstrual Period: 03/10/2020 Now: No : 0 Para: 0 Reviewed Nursing Documentation: PMH: Agreed; PSxH: Agreed Nursing Documentation-PMH Past Medical History: No History, Except For Hx Hypertension: Yes Review of Systems All Other Systems: negative except mentioned in HPI Physical Exam Vital Signs Date Time Temp Pulse Resp B/P (MAP) Pulse Ox O2 Delivery O2 Flow Rate FiO2 03/20/20 19:27 98.1 65 18 163/96 (118) 98 Room Air General Appearance: well appearing, no apparent distress, alert, GCS 15 Head: normocephalic, atraumatic Eyes: bilateral eye other - bilateral eye redness left greater than right ENT: hearing grossly normal, normal voice Neck: full range of motion, supple Respiratory: no respiratory distress, speaking full sentences Cardiovascular #1: normal inspection, regular rate, rhythm Musculoskeletal: no calf tenderness Neurologic: normal gait Psychiatric: mood/affect normal Skin: no rash Medical Decision Making Diagnostic Impression: Primary Impression: Acute conjunctivitis ER Course Patient presented for eye redness. Differential diagnosis include was not limited to conjunctivitis, glaucoma, corneal edema among others. Patient has a benign exam and does not appear to require any imaging or laboratory testing at this time. Patient does not have any evidence of acute glaucoma. This appears to be prolonged contact lens use. Patient is advised to follow-up with her care professionals for reexamination. She advised return if worse. This medical record is generated with [employer] percher software. There may be some percher discrepancies related to use of this software Last Vital Signs Date Time Temp Pulse Resp B/P (MAP) Pulse Ox O2 Delivery O2 Flow Rate FiO2 03/20/20 19:55 98.1 61 18 163/96 98 Room Air Status: improved Disposition: HOME, SELF-CARE Condition: Stable Scripts Ofloxacin (OFLOXACIN) 5 Ml Drops 5 ML OT FOUR TIMES A DAY for 5 Days, #5 ML Prov: Carlo Brambila MD 03/20/20 Referrals[facility] (PCP) Patient Instructions: Bacterial Conjunctivitis Additional Instructions: Follow-up with your graphic design specialist. Return if any worsening or other concerns. Carlo Brambila MD Mar 24, 2020 22:22
== END 2020-03-20 19:55 | disposition home or self-care (01) ==
LOC: EMR 19:45
DX: H10.30 Unspecified acute conjunctivitis, unspecified eye (principal); I10 Essential (primary) hypertension
CPT/HCPCS: 99281

== ENCOUNTER 2020-05-23 20:28 | Emergency (ER) | payer MEDICAID ==
[~2020-05-23] VITALS: Ht 175.3 cm; Wt 149.7 kg
[~2020-05-23 20:28] MED LIST changes: +OFLOXACIN5 ML OT
[2020-05-23] MEDS ORDERED: Omnipaque 350 100ml vial INJ PRN (20:45)
--- NOTE | 2020-05-23 20:55 | Emergency Room Report ---
History of Present Illness General Chief Complaint: Chest Pain Source: Patient, EMS (Nicole Mullen D.O.) Present Illness HPI 35-year-old -[place] female with past medical history of PTSD presents to the emergency department with complaint substernal chest pain radiating to her back. Also endorses intermittent shortness of breath. She currently states that her chest pain is located on the anterior chest and is quantified as "tight". She recently tested negative for Covid, however she had Covid back in October 2019 and states "it feels the same as before". She also had a recent sick contact, her father, who just from Covid. She denies nausea, vomiting, diarrhea, melena, hematochezia, focal weakness, history of blood clot, hemoptysis, leg swelling, fever, dysuria or any other symptoms. The patient's symptoms were gradual onset, severity was moderate, duration since 7 days. Quality: Tight Past medical history: Obesity, PTSD Past surgical history: Denies Smoking: Denies Alcohol use: Denies Drug use: Denies Review of systems: CONST: No fevers or chills, No night sweats PULMONARY: No productive cough, positive shortness of breath CARDIAC: Positive chest pain, No palpitations GI: No vomiting, No diarrhea , No melena_or_BRBPR : No dysuria, No hematuria, No discharge NEURO: No new_focal_weakness_or_numbness, No confusion, No vision changes 14 point Review of Systems is otherwise negative except per HPI Physical Exam: GENERAL: Awake_alert_ nontoxic, no acute distress Spo2 99% on RA -normal. Morbidly obese EYES: Extraocular muscles are intact. Conjunctivae clear. Lids without swelling ENT: External nose and ear normal_in_appearance. Oropharynx clear. Head_atraumatic, Moist_oral_mucosa NECK: No JVD. No meningismus. No thyromegaly. Supple. Trachea midline RESP: Normal respiratory effort. Symmetric rise. No stridor. Clear_to_auscultation_No_rales_No_wheezes. Speaks in full and complete sentences CARDIAC: Regular rate and regular rhytm. No_significant pedal edema. Negative Homans' sign bilaterally ABDOMEN: Soft. Nondistended. Nontender_No_rebound_or_guarding. Negative Rodriguez sign. Negative Rovsing sign. Negative CVA tenderness to palpation. MSK: Normal muscle tone, without rigidity. Extremities without asymmetric deformity or swelling. SKIN: Warm and dry. No visible cyanosis or pallor NEUROLOGIC: Alert, oriented x3. Motor_and_sensation_grossly_intact. No truncal ataxia. Gait_normal Psych: Normal mood and affect, normal judgment and insight - COORDINATION OF CARE Case was discussed with: Patient Any labs and imaging that were ordered were interpreted as part of the medical decision making: I reviewed patient's chart. Patient has had at least one previous ED visit for similar presentation and was discharged. Medical Decision Making/Plan: Differential includes acute coronary syndrome, pulmonary embolism, pneumonia, aortic dissection, pericardial tamponade, musculoskeletal chest pain, among others. Patient is nontoxic and well-appearing with stable vitals signs. The patients pain appears consistent with a musculoskeletal origin. Pain is reproducible with palpation. EKG shows NSR without any obvious signs of ischemia. No significant right heart strain. CXR unremarkable. Troponin negative x 1. CTA pending to eval for PE given hx of COVID and sedentary lifestyle. Acute coronary syndrome is unlikely and the patient is low risk, pain is atypic al, nonexertional, and troponin is negative with over 6 hrs of symptoms. The pain is not classic for pericarditis or myocarditis, and the patient has no significant risk factors for a pericardial effusion and has stable vitals signs, unlikely to have tamponade. The patient has no significant risk factors for aortic dissection, no history of connective tissue disorder, and the patients pain is not severe, radiating to the back, or tearing in nature. They have normal bilateral radial and pedal pulses. Care signed out to oncoming ED physician pending CTA. 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 She presents with chief complaint of shortness of breath and chest heaviness. Cardiac work-up was negative. Chest x-ray is unremarkable. CT scan was signed out to me. That was negative for PE or other infectious cause. Covid testing was also sent and was negative. Patient says she was positive for Covid in November. She had Covid testing done recently and results from yesterday was negative. (Devon Claudio MD) EKG Diagnostic Results Troponin ordered: Yes When was troponin ordered?: May 23, 2020 ROSA Scribosbaldo Text 12-lead EKG (interpreted by me) Time: 2043 Indication: Rhythm analysis Tracing visualized and Interpreted by me. Rhythm: Normal sinus rhythm Rate: 74 bpm QTc: 432 Morphology: No_significant_ST_elevations_or_depressions, No STEMI Impression: Normal_sinus_rhythm_without_significant_abnormality (Nicole Mullen D.O.) Rhythm Strip Diag. Results Rhythm Strip Time: 21:06 EP Interpretation: yes Rate: 99 Rhythm: NSR, no PVC's, no ectopy (Nicole Mullen D.O.) Chest X-Ray Diagnostic Results Chest X-Ray Diagnostic Results : ROSA Tubbs XRAY Chest 1v Read by Me Indication: Chest pain FINDINGS: Lungs: Unremarkable. No consolidation. Pleural space: No pleural effusion. No pneumothorax. Heart: Unremarkable. No cardiomegaly. Bones/joints: Unremarkable. IMPRESSION: No acute cardiopulmonary abnormality. (Nicole Mullen D.O.) CT/MRI/US Diagnostic Results CT/MRI/US Diagnostic Results : Imaging Test Ordered: CT chest Impression Read by radiologist. Negative. (Devon Claudio MD) Reevaluation Time: 22:00 Last Vital Signs Date Time Temp Pulse Resp B/P (MAP) Pulse Ox O2 Delivery O2 Flow Rate FiO2 05/23/20 20:31 98.1 77 18 130/79 (96) 99 Room Air Status: improved (Nicole Muleln D.O.) Status: improved (Devon Claudio MD) Disposition: HOME, SELF-CARE Admit Decision Time: 22:00 (Nicole Mullen D.O.) Condition: Stable Signed Out To: Dr Claudio (Nicole Mullen D.O.) Patient Instructions: Nonspecific Chest Pain Additional Instructions: Follow-up with your doctor in 7 days. Return if symptoms worsen. Nicole Mullen D.O. May 23, 2020 20:55 Devon Claudio MD May 23, 2020 22:35
[2020-05-23 21:10] VITALS: BP 138/78
[2020-05-23 21:25] LABS: ANION GAP 4 mmol/L (5-15); BLOOD UREA NITROGEN 10 mg/dL (7-18); CALCIUM 8.5 MG/DL (8.5-10.1); CARBON DIOXIDE 31 MMOL/L (21-32); CHLORIDE 103 MMOL/L (98-107); CREATININE 0.8 MG/DL (0.55-1.30); POTASSIUM 3.8 MMOL/L (3.5-5.1); SODIUM 138 MMOL/L (136-145)
[2020-05-23 21:26] LABS: APPEARANCE,URINE SLIGHTLY CLOUDY; BILIRUBIN, URINE NEGATIVE (NEGATIVE); GLUCOSE, URINE (UA) NEGATIVE (NEGATIVE); KETONES,URINE 1+ (NEGATIVE); LEUKOCYTE ESTERASE ,URINE 2+ (NEGATIVE); NITRITE,URINE NEGATIVE (NEGATIVE); PH,URINE 5 (4.5-8.0); PROTEIN,URINE NEGATIVE (NEGATIVE); UROBILINOGEN,URINE 1 MG/DL (0.0-1.0)
[2020-05-23 21:36] LABS: ALANINE AMINOTRANSFERASE 22 U/L (12-78); ALBUMIN 3.5 G/DL (3.4-5.0); ALBUMIN/GLOBULIN RATIO 0.9 (1.0-2.7); ALKALINE PHOSPHATASE 83 U/L (46-116); ASPARTATE AMINO TRANSFERASE 16 U/L (15-37); BILIRUBIN,TOTAL 0.3 MG/DL (0.2-1.0)
[2020-05-23 21:41] LABS: COLOR,URINE YELLOW
[2020-05-23 21:51] LABS: BASOPHILS % (AUTO) 1.3 % (0.0-2.0); EOSINOPHILS % (AUTO) 0.6 % (0.0-3.0); HEMATOCRIT 34.4 % (37.0-47.0); HEMOGLOBIN 11.9 G/DL (12.0-16.0); LYMPHOCYTES % (AUTO) 35.5 % (20.0-45.0); MEAN CORPUSCULAR VOLUME 88 FL (80-99); NEUTROPHILS % (AUTO) 56.6 % (45.0-75.0); PLATELET COUNT 311 K/UL (150-450); RED BLOOD COUNT 3.91 M/UL (4.20-5.40); RED CELL DISTRIBUTION WIDTH 13.5 % (11.6-14.8); WHITE BLOOD COUNT 6.2 K/UL (4.8-10.8)
[2020-05-23] MEDS ORDERED: Methocarbamol 750mg tab ORAL ONE (22:00)
[2020-05-23] MEDS ORDERED: Ketorolac 30mg Inj IV ONE (22:00)
--- NOTE | 2020-05-23 22:17 | Diagnostic Imaging Report ---
EXAM: CT Angiography Chest With Intravenous Contrast CLINICAL HISTORY: PE TECHNIQUE: Axial computed tomographic angiography images of the chest with intravenous contrast. CTDI is 159.50 mGy and DLP is 780.40 mGy-cm. One or more of the following dose reduction techniques were used: automated exposure control, adjustment of the mA and/or kV according to patient size, use of iterative reconstruction technique. MIP reconstructed images were created and reviewed. COMPARISON: CT chest 02/29/2020. FINDINGS: Pulmonary arteries: Suboptimal bolus timing somewhat limits evaluation for pulmonary embolism. No evidence of PE to the segmental level. Aorta: Normal caliber aorta. No acute aortic syndrome. Lungs: Unremarkable. No consolidation. Pleural space: Unremarkable. No significant effusion. No pneumothorax. Heart: Unremarkable. Bones/joints: No acute fracture. Soft tissues: Unremarkable. Lymph nodes: Unremarkable. IMPRESSION: No pulmonary embolism.
--- NOTE | 2020-05-23 22:36 | Diagnostic Imaging Report ---
EXAM: XR Chest, 1 View CLINICAL HISTORY: PAIN TECHNIQUE: Frontal view of the chest. COMPARISON: Chest x-ray 02/29/2020 FINDINGS: Lungs: Unremarkable. No consolidation. Pleural space: No pleural effusion. No pneumothorax. Heart: Unremarkable. No cardiomegaly. Bones/joints: Unremarkable. IMPRESSION: No acute cardiopulmonary abnormality.
[2020-05-23 22:45] VITALS: BP 135/75
== END 2020-05-23 22:45 | disposition home or self-care (01) ==
LOC: EMR 20:50
DX: R07.89 Other chest pain (principal); R06.00 Dyspnea, unspecified; R06.02 Shortness of breath; Z20.828 Contact with and (suspected) exposure to other viral communicable diseases; Z86.19 Personal history of other infectious and parasitic diseases
CPT/HCPCS: 36415; 71045; 71275; 80053; 81003; 81025; 83690; 83880; 84484; 85025; 93005; 96374; J1885; Q9967; U0002; Z7502; 99284

== ENCOUNTER 2020-08-19 13:59 | Emergency (ER) | payer MEDICAID ==
[~2020-08-19] VITALS: Ht 172.7 cm; Wt 149.7 kg
[2020-08-19 14:29] VITALS: BP 120/60
--- NOTE | 2020-08-19 14:31 | NUR ---
pt arrives to ER with complaints of sudden onset of chest pain starting Monday. pt states pain radiates to her back and left arm. pt is describing pain as a tingling, pressure, and tightness. pt denies previous cardiac history. pt states history of PTSD, anxiety, and prediabetic. pt placed on rn cardiac cath at this time witH EKG completed and reviewed by provider.
[2020-08-19 14:36] LABS: APPEARANCE,URINE SLIGHTLY CLOUDY; BILIRUBIN, URINE NEGATIVE (NEGATIVE); COLOR,URINE PALE YELLOW; GLUCOSE, URINE (UA) NEGATIVE (NEGATIVE); KETONES,URINE 1+ (NEGATIVE); LEUKOCYTE ESTERASE ,URINE 3+ (NEGATIVE); NITRITE,URINE NEGATIVE (NEGATIVE); PH,URINE 6.5 (4.5-8.0); PROTEIN,URINE NEGATIVE (NEGATIVE); UROBILINOGEN,URINE NORMAL MG/DL (0.0-1.0)
[2020-08-19 14:40] LABS: EOSINOPHILS % (AUTO) 0.3 % (0.0-3.0); HEMATOCRIT 35.8 % (37.0-47.0); HEMOGLOBIN 12.2 G/DL (12.0-16.0); LYMPHOCYTES % (AUTO) 30.5 % (20.0-45.0); MEAN CORPUSCULAR VOLUME 89 FL (80-99); MONOCYTES % (AUTO) 6.6 % (1.0-10.0); NEUTROPHILS % (AUTO) 61.7 % (45.0-75.0); PLATELET COUNT 329 K/UL (150-450); RED BLOOD COUNT 4.04 M/UL (4.20-5.40); RED CELL DISTRIBUTION WIDTH 14.7 % (11.6-14.8); WHITE BLOOD COUNT 5.6 K/UL (4.8-10.8)
[2020-08-19 14:45] LABS: ANION GAP 7 mmol/L (5-15); BLOOD UREA NITROGEN 11 mg/dL (7-18); CARBON DIOXIDE 29 MMOL/L (21-32); CHLORIDE 103 MMOL/L (98-107); CREATININE 0.9 MG/DL (0.55-1.30); POTASSIUM 3.7 MMOL/L (3.5-5.1); SODIUM 139 MMOL/L (136-145)
[2020-08-19 14:49] LABS: ALANINE AMINOTRANSFERASE 23 U/L (12-78); ALBUMIN 3.7 G/DL (3.4-5.0); ALBUMIN/GLOBULIN RATIO 0.8 (1.0-2.7); ALKALINE PHOSPHATASE 80 U/L (46-116); ASPARTATE AMINO TRANSFERASE 13 U/L (15-37); BILIRUBIN,TOTAL 0.4 MG/DL (0.2-1.0)
--- NOTE | 2020-08-19 15:26 | Emergency Room Report ---
History of Present Illness General Chief Complaint: Chest Pain Source: Patient Present Illness HPI The patient states that 5 days ago she noticed some pain in her back. She states that she went to apple picker her dog and when she stood up she also noticed pain in her left upper back and left shoulder. She noted throughout the past 5 days that the pain has radiated into her left arm and also her right arm. She has also had chest pressure. She denies recent illness. She denies cough or congestion. She denies fever or chills. She denies nausea or vomiting. She denies sore throat. She denies recent trauma. She denies shortness of breath. She states that she does have a history of anxiety and does use marijuana for that. 2 days prior to the onset of her symptoms she used marijuana both days. She states prior to that she had not used marijuana in approximately a year. She denies alcohol or illicit drug use. She has no other complaints. 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 Patient History Past Medical History: see triage record, HTN, psych hx Social History: Reports: drug use - Marijuana; Denies: smoking, alcohol use Last Menstrual Period: 08/05/20 Now: No Reviewed Nursing Documentation: PMH: Agreed; PSxH: Agreed Nursing Documentation-PMH Past Medical History: No Stated History Hx Hypertension: Yes Review of Systems All Other Systems: negative except mentioned in HPI Physical Exam Vital Signs Date Time Temp Pulse Resp B/P (MAP) Pulse Ox O2 Delivery O2 Flow Rate FiO2 08/19/20 14:08 98.2 78 18 120/60 (80) 98 Room Air Sp02 EP Interpretation: reviewed, normal General Appearance: no apparent distress, alert, GCS 15, non-toxic Head: normocephalic, atraumatic Eyes: bilateral eye normal inspection, bilateral eye PERRL ENT: hearing grossly normal, normal pharynx, no angioedema, normal voice Neck: normal inspection, full range of motion, supple/symm/no masses Respiratory: chest non-tender, lungs clear, normal breath sounds, no re spiratory distress, no retraction, no accessory muscle use, speaking full sentences Cardiovascular #1: regular rate, rhythm, no edema Gastrointestinal: normal bowel sounds, non tender, soft, non-distended, no gua rding, no rebound Rectal: deferred Musculoskeletal: normal range of motion, gait/station normal, tender - TTP over the trapezius m bilaterally L>R. Pain is reproducible on exam. Neurologic: alert, motor strength/tone normal, oriented x3, sensory intact, responsive, speech normal Psychiatric: judgement/insight normal, memory normal, mood/affect normal, no suicidal/homicidal ideation Skin: no rash, normal color Medical Decision Making Diagnostic Impression: Primary Impression: Chest pain Additional Impressions: Trapezius muscle spasm Upper back strain ER Course This patient has nonspecific chest pain. Given the length of symptoms, this workup is very reassuring with negative cardiac enzymes, normal EKG, and normal chest x-ray. The patient is low risk and his symptoms are atypical for acute co ronary syndrome. I have very low suspicion for PE, aortic dissection or pneumothorax based on history/physical, laboratory and radiologic workup. I also obtained a D-dimer which is very reassuring that this patient does not have a PE. Further, the patient d did get seen in the last 6 months for the same symptoms and underwent a CT of her chest which was negative. I suspect the patient's symptoms are musculoskeletal in etiology based on the physical exam and that I could reproduce the patient's pain with palpation of the trapezius muscle. Further, the patient's symptoms are worse with movement. I suspect this is musculoskeletal in etiology. Overall, my evaluation is benign. The patient is instructed to follow-up closely with her primary care physician. The patient was given close return precautions and followup instructions. This patient was evaluated in the context of the global COVID-19 pandemic, which necessitated consideration that the patient might be at risk for infection with the [id number] virus that causes COVID-19. Institutional protocols and algorithms that pertain to the evaluation of patients at risk for COVID-19 and the state of rapid change based on information released by multiple regulatory bodies including the CDC and federal and state organizations. These policies and algorithms were followed during the patient's care in the ED. Laboratory Tests Test 08/19/20 14:15 08/19/20 14:19 Urine Color Pale yellow Urine Appearance Slightly cloudy Urine pH 6.5 (4.5-8.0) Urine Specific [place] 1.010 (1.005-1.035) Urine Protein Negative (NEGATIVE) Urine Glucose (UA) Negative (NEGATIVE) Urine Ketones 1+ (NEGATIVE) H Urine Blood Negative (NEGATIVE) Urine Nitrite Negative (NEGATIVE) Urine Bilirubin Negative (NEGATIVE) Urine Urobilinogen Normal MG/DL (0.0-1.0) Urine Leukocyte Esterase 3+ (NEGATIVE) H Urine RBC 0-2 /HPF (0 - 2) Urine WBC 2-4 /HPF (0 - 2) Urine Squamous Epithelial Cells Many /LPF (NONE/OCC) H Urine Bacteria Few /HPF (NONE) Urine HCG, Qualitative Negative (NEGATIVE) Urine Opiates Screen Negative (NEGATIVE) Urine Barbiturates Screen Negative (NEGATIVE) Phencyclidine (PCP) Screen Negative (NEGATIVE) Urine Amphetamines Screen Negative (NEGATIVE) Urine Benzodiazepines Screen Negative (NEGATIVE) Urine Cocaine Screen Negative (NEGATIVE) Urine Marijuana (THC) Screen Negative (NEGATIVE) White Blood Count 5.6 K/UL (4.8-10.8) Red Blood Count 4.04 M/UL (4.20-5.40) L Hemoglobin 12.2 G/DL (12.0-16.0) Hematocrit 35.8 % (37.0-47.0) L Mean Corpuscular Volume 89 FL (80-99) Mean Corpuscular Hemoglobin 30.1 PG (27.0-31.0) Mean Corpuscular Hemoglobin Concent 34.0 G/DL (32.0-36.0) Red Cell Distribution Width 14.7 % (11.6-14.8) Platelet Count 329 K/UL (150-450) Mean Platelet Volume 7.7 FL (6.5-10.1) Neutrophils (%) (Auto) 61.7 % (45.0-75.0) Lymphocytes (%) (Auto) 30.5 % (20.0-45.0) Monocytes (%) (Auto) 6.6 % (1.0-10.0) Eosinophils (%) (Auto) 0.3 % (0.0-3.0) Basophils (%) (Auto) 1.0 % (0.0-2.0) D-Dimer 0.44 mg/L FEU (0.00-0.49) Sodium Level 139 MMOL/L (136-145) Potassium Level 3.7 MMOL/L (3.5-5.1) Chloride Level 103 MMOL/L (98-107) Carbon Dioxide Level 29 MMOL/L (21-32) Anion Gap 7 mmol/L (5-15) Blood Urea Nitrogen 11 mg/dL (7-18) Creatinine 0.9 MG/DL (0.55-1.30) Estimated Glomerular Filtration Rate > 60 mL/min (>60) Glucose Level 93 MG/DL (74-106) Calcium Level 9.0 MG/DL (8.5-10.1) Total Bilirubin 0.4 MG/DL (0.2-1.0) Aspartate Amino Transferase (AST) 13 U/L (15-37) L Alanine Aminotransferase (ALT) 23 U/L (12-78) Alkaline Phosphatase 80 U/L (46-116) Troponin I 0.001 ng/mL (0.000-0.056) Total Protein 8.6 G/DL (6.4-8.2) H Albumin 3.7 G/DL (3.4-5.0) Globulin 4.9 g/dL Albumin/Globulin Ratio 0.8 (1.0-2.7) L EKG Diagnostic Results Troponin ordered: Yes Rate: bradycardiac Rhythm: other - s.[place] ST Segments: other - NSST findings. Flipped T wave in V1 Rhythm Strip Diag. Results EP Interpretation: yes Rate: 60's Rhythm: no PVC's, no ectopy, other Chest X-Ray Diagnostic Results Chest X-Ray Diagnostic Results : Chest X-Ray Ordered: Yes # of Views/Limited/Complete: 1 View Indication: Chest Pain EP Interpretation: Yes Interpretation: no consolidation, no effusion, no pneumothorax, no acute cardiopulmonary disease Impression: No acute disease Electronically Signed by: Yadi Pope DO Last Vital Signs Date Time Temp Pulse Resp B/P (MAP) Pulse Ox O2 Delivery O2 Flow Rate FiO2 08/19/20 14:29 98.2 18 120/60 98 Room Air 08/19/20 14:08 78 Status: improved Disposition: HOME, SELF-CARE Condition: Improved Referrals: [facility] ([facility]P) Patient Instructions: Nonspecific Chest Pain Yadi Pope DO Aug 19, 2020 15:26
[2020-08-19 16:26] VITALS: BP 122/58
--- NOTE | 2020-08-19 16:26 | NUR ---
pt updated on plan of care at this time. pt resting comfortably.
[2020-08-19] MEDS ORDERED: CYCLOBENZAPRINE10 MG ORAL (16:30)
[2020-08-19] MEDS ORDERED: IBUPROFEN800 MG ORAL (16:30)
--- NOTE | 2020-08-20 12:01 | Diagnostic Imaging Report ---
Indication: Chest pain Technique: XRAY Chest 1v Comparison: 05/23/2020 Findings: Heart size and mediastinal contours are within normal limits for AP technique. There is no focal airspace consolidation, pneumothorax or pleural effusion. Osseous structures demonstrate no acute abnormality. Impression: No radiographic evidence of acute cardiopulmonary disease.
== END 2020-08-19 17:03 | disposition home or self-care (01) ==
LOC: EMR 14:27
DX: R07.9 Chest pain, unspecified (principal); M62.838 Other muscle spasm; S29.012A Strain of muscle and tendon of back wall of thorax, initial encounter; X58.XXXA Exposure to other specified factors, initial encounter; Y92.9 Unspecified place or not applicable; F41.9 Anxiety disorder, unspecified; I10 Essential (primary) hypertension; R00.1 Bradycardia, unspecified
CPT/HCPCS: 36415; 71045; 80053; 80307; 81003; 81025; 84484; 85025; 85379; 93005; Z7502; 99284